=== PATIENT | female | born 1990 | race Two or more races ===

== ENCOUNTER 2022-11-21 12:41 | Emergency (ER) | payer MEDICAID ==
[~2022-11-21] VITALS: Ht 160 cm; Wt 63.5 kg
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
--- NOTE | 2022-11-21 13:26 | NUR ---
PT TAKEN TO CT VIA PRETTY
[2022-11-21] MEDS ORDERED: IBUPROFEN 600 MG TABLET PO ONE (13:30)
[2022-11-21] MEDS ORDERED: ACETAMINOPHEN ES 500 MG TABLET PO ONE (13:30)
[2022-11-21] MEDS ORDERED: ACETAMINOPHEN ES 500 MG TABLET ONE (13:37)
[2022-11-21] MEDS ORDERED: IBUPROFEN 600 MG TABLET ONE (13:38)
[2022-11-21] MEDS ORDERED: IBUP-1953 PO (14:21)
[2022-11-21 14:57] VITALS: BP 125/72; TEMP 98.1; O2SAT 100
--- NOTE | 2022-11-21 14:57 | NUR ---
DPatient discharged to home in stable condition. Written and verbal after care instructions given. Patient verbalizes understanding of instruction.
== END 2022-11-21 14:58 | disposition home or self-care (01) ==
LOC: ER 12:45
DX: S00.531A Contusion of lip, initial encounter (principal); S09.8XXA Other specified injuries of head, initial encounter; V89.2XXA Person injured in unspecified motor-vehicle accident, traffic, initial encounter; Y93.89 Activity, other specified; Y92.89 Other specified places as the place of occurrence of the external cause; Y99.8 Other external cause status
CPT/HCPCS: 70450-TC; 70486-TC